=== PATIENT | male | born 1985 | race Caucasian/White ===

== ENCOUNTER 2016-10-06 15:42 | Inpatient (IN) | payer BC ==
[2016-10-06] MEDS ORDERED: LACTATED RINGERS 1,000 ML IVS ONE (16:25)
--- NOTE | 2016-10-06 16:25 | ED.PDOC ---
History of Present Illness - General Chief Complaint: Abdominal Pain Stated Complaint: abd pain Time Seen by Provider: 10/06/16 16:21 Information Source: patient Exam Limitations: no limitations - History of Present Illness Initial Comments: Ryne Quarles 31 y/o male with no chronic medical problem stated that he started sharp stabbing pain yesterday got worse this afternoon able to eat but feels not hungry. No nausea,vomiting ,dysuria or diarrhea or constipation. Abdominal Pain Onset Location: RLQ Pain Radiation: no radiation Quality: steady, stabbing Timing/Duration: 24 hours Improving Factors: nothing Worsening Factors: nothing Associated Symptoms: denies symptoms Review of Systems - Review of Systems Constitutional: States: no symptoms reported EENTM: States: no symptoms reported Respiratory: States: no symptoms reported Cardiology: States: no symptoms reported Gastrointestinal/Abdominal: States: see HPI Genitourinary: States: no symptoms reported Musculoskeletal: States: no symptoms reported Skin: States: no symptoms reported Neurological: States: no symptoms reported Endocrine: States: no symptoms reported Hematologic/Lymphatic: States: no symptoms reported Past Medical History (General) - Patient Medical History Hx Seizures: No Hx Stroke: No Hx Dementia: No Hx Asthma: No Hx of COPD: No Hx Cardiac Disorders: No Hx Congestive Heart Failure: No Hx Pacemaker: No Hx Hypertension: No Hx Thyroid Disease: No Hx Diabetes: No Hx Gastroesophageal Reflux: No Hx Renal Disease: No Hx Cancer: No Hx of HIV: No Hx Hepatitis C: No Hx MRSA: No Surgical History: no surgical history - Vaccination History Hx Tetanus, Diphtheria Vaccination: Yes Hx Influenza Vaccination: Yes Hx Pneumococcal Vaccination: Yes Immunizations Up to Date: Yes - Social History Hx Tobacco Use: Yes Hx Chewing Tobacco Use: No Hx Alcohol Use: No Hx Substance Use: No Hx Substance Use Treatment: No Hx Depression: No Hx Physical Abuse: No Hx Emotional Abuse: No Hx Suspected Abuse: No - Female History Patient : No Family Medical History - Family History Father Family History: No Known Living Status: Unknown Mother Family History: Unknown Physical Exam - Physical Exam General Appearance: Alert, Comfortable, No apparent distress Eyes, Ears, Nose, Throat Exam: PERRL/EOMI, normal ENT inspection, TMs normal, pharynx normal Neck: supple, normal inspection Respiratory: chest non-tender, lungs clear, normal breath sounds Cardiovascular/Chest: normal peripheral pulses, regular rate, rhythm, no edema, no gallop, no murmur Peripheral Pulses: No deficit Gastrointestinal/Abdominal: normal bowel sounds, tenderness - right lower quadrant Back Exam: normal inspection, no CVA tenderness, no vertebral tenderness Neurologic: no motor/sensory deficits, alert, normal mood/affect, oriented x 3 Skin Exam: normal color, warm/dry Lymphatic: no adenopathy Progress - Results/Orders Results/Orders: 10/06/16 17:50 Hold Metformin x 48Hrs [id number] Abdomen/Pelvis w/Contrast [CT] Stat Laboratory Results WBC 9.8 K/mm3 (4.8-10.8) 10/06/16 16:20 RBC 5.24 M/mm3 (4.70-6.10) 10/06/16 16:20 Hgb 16.5 gm/dL (14.0-18.0) 10/06/16 16:20 Hct 46.9 % (42.0-52.0) 10/06/16 16:20 MCV 89.6 fl (80.0-94.0) 10/06/16 16:20 MCH 31.5 pg (27.0-31.0) H 10/06/16 16:20 MCHC 35.2 g/dL (33.0-37.0) 10/06/16 16:20 RDW 12.7 % (11.5-14.5) 10/06/16 16:20 Plt Count 245 K/mm3 (130-400) 10/06/16 16:20 MPV 7.2 fl (7.40-10.4) L 10/06/16 16:20 Absolute Neuts (auto) 7.10 K/uL (1.8-6.8) H 10/06/16 16:20 Absolute Lymphs (auto) 1.90 K/uL (1.0-3.4) 10/06/16 16:20 Absolute Monos (auto) 0.70 K/uL (0.2-0.8) 10/06/16 16:20 Absolute Eos (auto) 0.10 K/uL (0.0-0.4) 10/06/16 16:20 Absolute Basos (auto) 0.10 K/uL (0.0-0.1) 10/06/16 16:20 Neutrophils % 72.8 % (42.0-78.0) 10/06/16 16:20 Lymphocytes % 19.0 % (20.0-50.0) L 10/06/16 16:20 Monocytes % 6.7 % (2.0-9.0) 10/06/16 16:20 Eosinophils % 0.9 % (1.0-5.0) L 10/06/16 16:20 Basophils % 0.6 % (0.0-2.0) 10/06/16 16:20 Sodium 140 mmol/L (135-145) 10/06/16 16:20 Potassium 3.7 mmol/L (3.6-5.0) 10/06/16 16:20 Chloride 104 mmol/L (101-111) 10/06/16 16:20 Carbon Dioxide 30 mmol/L (21-31) 10/06/16 16:20 Anion Gap 9.7 (12-18) L 10/06/16 16:20 BUN 16 mg/dL (7-18) 10/06/16 16:20 Creatinine 0.70 mg/dL (0.6-1.3) 10/06/16 16:20 BUN/Creatinine Ratio 22.9 (10-20) H 10/06/16 16:20 Random Glucose 96 mg/dL (70-105) 10/06/16 16:20 Serum Osmolality 280.4 mOsm/L (275-295) 10/06/16 16:20 Calcium 9.5 mg/dL (8.4-10.2) 10/06/16 16:20 Total Bilirubin 1.2 mg/dL (0.2-1.0) H 10/06/16 16:20 AST 31 IU/L (10-42) 10/06/16 16:20 ALT 65 IU/L (10-60) H 10/06/16 16:20 Alkaline Phosphatase 106 IU/L (42-121) 10/06/16 16:20 Serum Total Protein 8.3 gm/dL (6.4-8.2) H 10/06/16 16:20 Albumin 4.9 g/dl (3.2-5.5) 10/06/16 16:20 Globulin 3.4 gm/dL (2.3-3.5) 10/06/16 16:20 Albumin/Globulin Ratio 1.4 (1.1-1.9) 10/06/16 16:20 Urine Color Yellow (Yellow) 10/06/16 16:15 Urine Appearance Clear (Clear) 10/06/16 16:15 Urine pH 6.5 (4.5-7.8) 10/06/16 16:15 Ur Specific [place] 1.025 (1.005-1.030) 10/06/16 16:15 Urine Protein Negative mg/dL 10/06/16 16:15 Urine Glucose (UA) Negative mg/dL (Negative) 10/06/16 16:15 Urine Ketones Negative mg/dL (NEGATIVE) 10/06/16 16:15 Urine Blood Negative (Negative) 10/06/16 16:15 Urine Nitrite Negative 10/06/16 16:15 Urine Bilirubin Negative (NEGATIVE) 10/06/16 16:15 Urine Urobilinogen 0.2 mg/dL (0.2-1.0) 10/06/16 16:15 Ur Leukocyte Esterase Negative (Negative) 10/06/16 16:15 Urine RBC 0 /hpf 10/06/16 16:15 Urine WBC 0 /hpf 10/06/16 16:15 Ur Epithelial Cells 0 /hpf 10/06/16 16:15 Urine Bacteria 0 10/06/16 16:15 - EKG/XRAY/CT CT Ordered: Yes - abd/pelvis: early appendicitis Departure - Departure Clinical Impression: Abdominal pain Qualifiers: Abdominal location: right lower quadrant Qualified Code(s): R10.31 - Right lower quadrant pain Appendicitis, acute Qualifiers: Acute appendicitis type: unspecified acute appendicitis type Qualified Code(s) : K35.80 - Unspecified acute appendicitis Time of Disposition: 21:09 - D/W Dr. Schneider-surgeon Disposition: Admit Patient Condition: Good Departure Forms: ED Discharge - Pt. Copy, Patient Portal Self Enrollment Instructions: DI for Abdominal Pain-Adult Home Medications: Ambulatory Orders Ciprofloxacin [Cipro] 500 mg PO BID #10 tab 07/25/14 RX: Promethazine HCl 25 mg PO Q8HRS PRN #7 tab 07/25/14 Amoxicillin [Amoxil] 500 mg PO TID #30 cap 01/23/15 Naproxen [Naprosyn] 500 mg PO BID #20 tab 01/23/15 Tramadol HCl [Ultram] 50 mg PO QID PRN #10 tab 01/23/15
--- NOTE | 2016-10-06 19:16 | CT ---
EXAM: Abdomen/Pelvis w/Contrast CLINICAL INDICATION: 31-year-old male with RIGHT lower quadrant pain for two days. EXAMINATION: CT of the abdomen and pelvis was performed following intravenous administration of contrast. Oral contrast was not administered. Multiplanar reformatted images were provided. This exam was performed according to our departmental dose optimization program which includes use of automated exposure control, adjustment of the mA and/or kV according to patient size and/or use of iterative reconstruction technique. COMPARISON: 03/11/2009. FINDINGS: Chest: Evaluation through the lung bases reveals no focal opacity, pleural effusion or pneumothorax. Heart size is within normal limits. No pericardial effusion. Abdomen and pelvis: The liver, gallbladder, pancreas, spleen, bilateral kidneys and bilateral adrenal glands are within normal limits. The vessels are patent and normal in caliber. No abdominopelvic lymph nodes are noted to be pathologically enlarged by CT measurement criteria. The bowel is within normal limits with fecal debris present throughout the large bowel. There is no abnormal bowel wall thickness or bowel dilation. No free air. No free abdominopelvic fluid collections. The appendix is identified retrocecal in location coursing along the RIGHT paracolic gutter slightly enlarged appearance measuring up to 8 mm with adjacent minimal paracolic stranding raising the concern for early, mild appendicitis in the correct clinical setting. The osseous structures are within normal limits. IMPRESSION: 1. The appendix is identified retrocecal in location coursing along the RIGHT paracolic gutter slightly enlarged appearance measuring up to 8 mm with adjacent minimal paracolic stranding raising the concern for early, mild appendicitis in the correct clinical setting. Electronically signed by: Marietta De La Cruz MD 10/06/2016 7:14 PM CDT
[2016-10-06] MEDS ORDERED: MORPHINE SULFATE INJ 10 MG/ML VIAL IV PRN (21:01)
[2016-10-06] MEDS ORDERED: metroNIDAZOLE IV PREMIX 500MG 100 ML IVPB ONE (21:12)
[2016-10-06] MEDS: metroNIDAZOLE IV PREMIX 500MG 500 MG in PREMIX BAG 1 BAG IVPB SCH (21:14)
--- NOTE | 2016-10-06 21:24 | HP ---
CHIEF COMPLAINT: Abdominal pain. HISTORY OF PRESENT ILLNESS: The patient is a 31 year-old male who developed right lower quadrant abdominal pain yesterday. There has been no nausea or vomiting. No fever or chills. No urinary symptoms. No cough. No change in his bowel habits, blood per rectum, melenic stools. PAST MEDICAL HISTORY: Negative for hospitalizations. CURRENT MEDICATIONS: None on a routine basis. He did take some Ibuprofen yesterday. ALLERGIES: NO KNOWN DRUG ALLERGIES. FAMILY HISTORY: Positive for diabetes and vascular disease. SOCIAL HISTORY: The patient is , a father of 3. 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 Does not drink or smoke. REVIEW OF SYSTEMS: Noncontributory, except as in the History of Present Illness. There has been no weight loss. PHYSICAL EXAMINATION: VITAL SIGNS: Currently afebrile and normotensive. GENERAL: The patient is awake, alert, cooperative and in mild distress. HEENT: Reveals the sclera to be nonicteric. Mucous membranes are moist. NECK: Without adenopathy. BACK: Without CVA tenderness. CHEST: Equal breath sounds bilaterally. CARDIOVASCULAR: Regular rate and rhythm. ABDOMEN: Soft. There is tenderness in the right lower quadrant without mass or guarding. EXTREMITIES: Without clubbing, cyanosis or edema. RECTAL: Deferred. LABORATORY: White blood cell count 9.8, hemoglobin 16.5, 72% neutrophils, 245, 000 platelets. Urine is clear. Chemistries are mildly elevated. ALT and bilirubin of 1.2 bilirubin and 65 ALT. Potassium 3.7, creatinine 0.70. CT scan reveals an inflamed retrocecal appendix with no free fluid, no free air and no apparent abscess formation. There is mild pericolic stranding. ASSESSMENT: 1. Early uncomplicated appendicitis. PLAN: The risks and benefits of surgery plus the alternative of antibiotic therapy were discussed with the patient. He has decided to proceed with antibiotic therapy and this will be done. He will be started on Zosyn and Flagyl. He will be given analgesics as needed, hydrated, made NPO and with a blood count in the morning. Further decisions as he improves or does not. #[id number] [facility]
[2016-10-06] MEDS ORDERED: PIPERACILLIN/TAZOBACTAM 3.375 GM VIAL IVPB ONE (22:21)
[2016-10-06] MEDS ORDERED: SODIUM CHL 0.9% 50ML MIN-BAG+ 50 ML IVPB ONE (22:22)
[2016-10-06] MEDS: SODIUM CHLORIDE 0.9% IVPB SCH (22:34)
[2016-10-06] MEDS: PIPERACILLIN IVPB SCH (22:34)
[2016-10-06] MEDS: TAZOBACTAM IVPB SCH (22:34)
[2016-10-06] MEDS: LACTATED RINGERS 1,000 ML IVS PRN (22:37)
[2016-10-07] MEDS ORDERED: PIPERACILLIN/TAZOBACTAM 3.375 GM VIAL IVPB ONE ×5 (03:04→21:45)
[2016-10-07] MEDS ORDERED: metroNIDAZOLE IV PREMIX 500MG 0 ML IVPB ONE (03:04)
[2016-10-07] MEDS ORDERED: SODIUM CHL 0.9% 50ML MIN-BAG+ 50 ML IVPB ONE ×2 (04:14→07:48)
[2016-10-07] MEDS: TAZOBACTAM IVPB SCH (05:05)
[2016-10-07] MEDS: PIPERACILLIN IVPB SCH (05:05)
[2016-10-07] MEDS: SODIUM CHLORIDE 0.9% IVPB SCH (05:05)
[2016-10-07] MEDS: LACTATED RINGERS 1,000 ML IVS PRN ×3 (05:10→22:41)
[2016-10-07] MEDS: metroNIDAZOLE IV PREMIX 500MG 500 MG in PREMIX BAG 1 BAG IVPB SCH ×3 (06:07→21:39)
[2016-10-07] MEDS ORDERED: SODIUM CHLORIDE 0.9% (FLUSH) 10 ML SYG IV PRN (07:33)
[2016-10-07] MEDS ORDERED: metroNIDAZOLE IV PREMIX 500MG 100 ML IVPB ONE ×4 (07:48→21:45)
[2016-10-07] MEDS ORDERED: IV SET AND CAP CHANGE INJ INJ SCH (09:00)
[2016-10-07] MEDS: PIPERACILLIN/TAZOBACTAM 3.375 GM in SODIUM CHLORIDE 0.9% 50ML 50 ML IVPB SCH ×2 (13:22→20:39)
[2016-10-07] MEDS ORDERED: MAGNESIUM HYDROXIDE 30 ML UD PO ONE (16:04)
[2016-10-07] MEDS ORDERED: MAGNESIUM HYDROXIDE 30 ML UD ONE (16:07)
[2016-10-07] MEDS ORDERED: SODIUM CHLORIDE 0.9% 50ML 0 ML ONE (19:13)
[2016-10-07] MEDS ORDERED: IBUPROFEN 400 MG TAB ONE (20:55)
[2016-10-07] MEDS ORDERED: IBUPROFEN 200 MG TAB PO PRN (20:56)
[2016-10-07] MEDS ORDERED: SODIUM CHLORIDE 0.9% 50ML 50 ML ONE ×2 (21:43→21:45)
[2016-10-08] MEDS: PIPERACILLIN/TAZOBACTAM 3.375 GM in SODIUM CHLORIDE 0.9% 50ML 50 ML IVPB SCH (04:50)
[2016-10-08] MEDS: metroNIDAZOLE IV PREMIX 500MG 500 MG in PREMIX BAG 1 BAG IVPB SCH (05:35)
[2016-10-08] MEDS: LACTATED RINGERS 1,000 ML IVS PRN (06:28)
[2016-10-08 09:43] VITALS: BP 112/73; TEMP 97.9; O2SAT 97
--- NOTE | 2016-10-08 11:09 | DS ---
FINAL DIAGNOSIS: 1. Acute uncomplicated retrocecal appendicitis. SURGICAL PROCEDURES: None. HISTORY OF PRESENT ILLNESS: The patient is a 31 year-old male who developed right lower quadrant abdominal pain yesterday. There has been no nausea or vomiting. No fever or chills. No urinary symptoms. No cough. No change in his bowel habits, blood per rectum, melenic stools. LABORATORY: On the date of discharge, the patient's white blood cell count was 7.9, hemoglobin down to 14.4, platelet count 205,000, segmented neutrophils 63.9 %. HOSPITAL COURSE: The patient was admitted through the Emergency Room with a CT scan consistent with appendicitis and lower abdominal pain and right flank pain despite having a normal white count. He was offered appendectomy at that time, however, the patient was quite concerned about anesthesia and surgery. He was told that an alternative was antibiotic therapy, but the rolled seat trimmer results were uncertain at this time. He wished to proceed with this, so he was started on IV Zosyn and Flagyl. By the next morning, his pain had resolved. He remained afebrile, however, his white count had gone up to 12,000, so he was continued on IV antibiotics. He was started on a clear liquid diet, which he tolerated well. He was given a dose of Milk of Magnesia and several bowel movements. He was advanced to a regular diet, which he tolerated the evening of 10/07/16 and the morning of the second post admission day, his white count was normalized. He was afebrile and without pain other than some back and hip pain, which resolved with abducted. At that time, he was discharged home. CONDITION ON DISCHARGE: Improved and excellent. DISPOSITION: The patient is to followup in my office in 2 weeks unless he developed increasing abdominal pain, nausea, vomiting, fever, chills or has other questions or problems. He is also discharged with prescriptions for Flagyl 500 mg q.8h. and Augmentin 875 mg twice a day. He is to take either a probiotic or enhanced yogurt twice a day and knows to call me sooner if he has no problems. There are no restrictions to activity or bathing. #[id number] [facility]
== END 2016-10-08 11:05 | disposition home or self-care (01) | DRG 395 ==
LOC: ER 15:42 → MS 21:30 → OBSVTOIN 21:30
PROVIDERS: ADMIT Surgery; ATTEND Surgery
PROC: BW21YZZ Computerized Tomography (CT Scan) of Abdomen and Pelvis using Other Contrast (ICD-10-PCS; principal; 2016-10-06)
DX: K35.80 Unspecified acute appendicitis (principal); Z53.29 Procedure and treatment not carried out because of patient's decision for other reasons; F17.290 Nicotine dependence, other tobacco product, uncomplicated

== ENCOUNTER 2017-03-16 05:02 | Emergency (ER) | payer BC ==
[2017-03-16] MEDS ORDERED: SODIUM CHLORIDE 0.9% (FLUSH) 10 ML SYG IV PRN (05:14)
[2017-03-16 05:23] VITALS: TEMP 98.4; O2SAT 100
--- NOTE | 2017-03-16 05:45 | ED.PDOC ---
History of Present Illness - General Chief Complaint: Chest Pain/OR Stated Complaint: chest pain Time Seen by Provider: 03/16/17 05:26 Source: patient Exam Limitations: no limitations - History of Present Illness Initial Comments: PT WAS PULLING STACKS OF PALLETS TONIGHT (WORKS AT [employer]) AND HAD RESULTANT PAIN IN HIS CHEST. IT LASTED FOR 15 MIN AND HAS ALL BUT RESOLVED NOW. PAIN IS REPRODUCED WITH PALPATION ON STERNUM AND REPRODUCES/WORSENS WITH DEEP INSPIRATION. PT MENTIONS HE WAS SICK WITH A VIRUS LAST NIGHT. Severity: moderate Improving Factors: rest Worsening Factors: movement Associated Symptoms: denies symptoms Allergies/Adverse Reactions: Allergies NO KNOWN ALLERGY Allergy (Unverified 01/23/15 07:41) Home Medications: Ambulatory Orders Amoxicillin & Pot Clavulanate [Augmentin] 1 tab PO BID #15 tab 10/08/16 metroNIDAZOLE [Flagyl] 500 mg PO Q8HR #22 tab 10/08/16 Review of Systems - Review of Systems Constitutional: Denies: chills, malaise EENTM: States: no symptoms reported Respiratory: Denies: cough, short of breath, wheezing Cardiology: Denies: palpitations, syncope Gastrointestinal/Abdominal: States: no symptoms reported Genitourinary: States: no symptoms reported Musculoskeletal: Denies: back pain, neck pain Skin: States: no symptoms reported Neurological: Denies: numbness, paresthesia, tingling Endocrine: States: no symptoms reported Hematologic/Lymphatic: States: no symptoms reported All other Systems: Reviewed and Negative Past Medical History (General) - Patient Medical History Hx Seizures: No Hx Stroke: No Hx Dementia: No Hx Asthma: No Hx of COPD: No Hx Cardiac Disorders: No Hx Congestive Heart Failure: No Hx Pacemaker: No Hx Hypertension: No Hx Thyroid Disease: No Hx Diabetes: No Hx Gastroesophageal Reflux: No Hx Renal Disease: No Hx Cancer: No Hx of HIV: No Hx Hepatitis C: No Hx MRSA: No Surgical History: no surgical history - Vaccination History Hx Tetanus, Diphtheria Vaccination: Yes Hx Influenza Vaccination: Yes Hx Pneumococcal Vaccination: Yes - Social History Hx Tobacco Use: No Hx Chewing Tobacco Use: No Hx Alcohol Use: No Hx Substance Use: Yes - 13 years ago Hx Substance Use Treatment: No Hx Depression: No Hx Physical Abuse: No Hx Emotional Abuse: No Hx Suspected Abuse: No - Female History Patient : No - Triage Comment ED Triage Comment: Patient was pulling on a pallet and started having shortness of breath and 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 Family Medical History - Family History Father Family History: No Known Living Status: Unknown Mother Family History: Unknown Physical Exam - Physical Exam General Appearance: Alert, Comfortable Eye Exam: bilateral normal Ears, Nose, Throat: hearing grossly normal, normal ENT inspection Neck: full range of motion, supple Respiratory: lungs clear, normal breath sounds, no respiratory distress, no accessory muscle use, other - STERNUM TTP. DEEP BREATH REPRODUCES/WORSENS THE PAIN. 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 CLINICALLY IS CLEARLY MUSCULOSKELETAL CHEST WALL STRAIN / NON- CARDIAC PAIN, BUT I DID EKG FOR COMPLETENESS WHICH WAS NSR. I EXPLAINED THIS TO PT AND HE IS GOING TO TRY OTC MEDS PRIOR TO RX. SAFE FOR DC TO HOME. Departure - Departure Clinical Impression: Pain of anterior chest wall with respiration Disposition: Discharge to Home or Self Care Condition: Good Departure Forms: ED Discharge - Pt. Copy, Patient Portal Self Enrollment Instructions: DI for Costochondritis Diet: resume usual diet Activity: other - NO LIFTING, PUSHING, OR PULLING OVER 15 LBS FOR 1 WEEK. Home Medications: Ambulatory Orders Amoxicillin & Pot Clavulanate [Augmentin] 1 tab PO BID #15 tab 10/08/16 metroNIDAZOLE [Flagyl] 500 mg PO Q8HR #22 tab 10/08/16 Additional Instructions: Please see your regular doctor or return to the ER if the pain doesn't resolve in 1 week, or sooner if the pain worsens.
[2017-03-16 05:51] VITALS: BP 142/80
== END 2017-03-16 05:54 | disposition home or self-care (01) ==
LOC: ER 05:02
DX: R07.1 Chest pain on breathing (principal)

== ENCOUNTER 2018-11-30 11:51 | Emergency (ER) | payer BC ==
[2018-11-30] MEDS ORDERED: KETOROLAC TROMETHAMINE INJ 30 MG/ML VIAL IM ONE (12:13)
--- NOTE | 2018-11-30 12:43 | RAD ---
EXAM DESCRIPTION: Obstructive series, 3 radiographs CLINICAL HISTORY: Right lower quadrant abdomen pain. Back pain FINDINGS/ IMPRESSION: Large intestinal bowel gas without luminal distention. No significant small intestinal bowel gas or evidence of luminal distention No organomegaly or obvious abdominal mass lesion. No pathologic calcification No diagnostic acute bony abnormality Electronically signed by: Landon Hines MD 11/30/2018 12:41 PM CDT
[2018-11-30 14:24] VITALS: O2SAT 98
--- NOTE | 2018-11-30 14:47 | CT ---
EXAM DESCRIPTION: Abdomen/Pelvis w/Contrast CLINICAL HISTORY: rlq and back pain COMPARISON: October 06, 2016 TECHNIQUE: Postcontrast CT images of the abdomen and pelvis are obtained using standard imaging protocol. This exam was performed according to our departmental dose-optimization program, which includes automated exposure control, adjustment of the mA and/or kV according to patient size and/or use of iterative reconstruction technique . FINDINGS: Visualized lung bases show no acute findings. Heterogeneous diffuse fatty infiltration of the liver with areas of geographic fatty sparing are seen. Spleen, pancreas, adrenal glands, and gallbladder are unremarkable. Abdominal vasculature is unremarkable. No nephrolithiasis. No ureteral obstruction. Kidneys are normal. Urinary bladder is within normal limits. Prostate is unremarkable. The appendix is retrocecal and normal. No inflammatory changes of the stomach, small bowel, or colon are seen. No diverticular disease. No pathologic lymphadenopathy. Osseous structures show no aggressive bony lesions. IMPRESSION: No acute findings on CT of the abdomen and pelvis. Mild diffuse fatty infiltration of the liver is seen. Electronically signed by: Tomas Brown MD 11/30/2018 2:45 PM CDT
[2018-11-30] MEDS ORDERED: CIPROFLOXACIN 500 MG TAB PO ONE (15:01)
[2018-11-30] MEDS ORDERED: metroNIDAZOLE 500 MG TAB PO ONE (15:01)
--- NOTE | 2018-11-30 15:02 | ED.PDOC ---
History of Present Illness - General Chief Complaint: Abdominal Pain Stated Complaint: Abdominal pain Time Seen by Provider: 11/30/18 11:54 Source: patient Exam Limitations: no limitations - History of Present Illness Initial Comments: The patient is a 33-year-old male presenting to the emergency room secondary to 3 days of vague lower abdominal to right lower abdominal discomfort in general. Mild decrease in appetite. Mild pain extending down towards the right testicle. Today he started having some lower back pain. No fevers. No diarrhea. No constipation. The patient has had kidney stones in the past and he apparently did have appendicitis in the past that was treated with antibiotics rather than surgery exam shows mild discomfort to palpation of the r ight lower quadrant. No true rebound or peritoneal signs. No costovertebral angle tenderness. No bruising. No evidence of trauma. Timing/Duration: other - 3 days Severity: mild Improving Factors: nothing Worsening Factors: nothing Associated Symptoms: loss of appetite, malaise Allergies/Adverse Reactions: Allergies NO KNOWN ALLERGY Allergy (Unverified 11/30/18 12:14) Home Medications: Ambulatory Orders Ciprofloxacin [Cipro] 500 mg PO BID #14 tab 11/30/18 Metronidazole 500 mg PO TID #21 tab 11/30/18 Tramadol HCl 50 mg PO Q8HR PRN #20 tab 11/30/18 Review of Systems - Review of Systems Constitutional: States: malaise EENTM: States: no symptoms reported Respiratory: States: no symptoms reported Cardiology: States: no symptoms reported Gastrointestinal/Abdominal: States: see HPI Genitourinary: States: see HPI Musculoskeletal: States: see HPI Skin: States: no symptoms reported Neurological: States: no symptoms reported Endocrine: States: no symptoms reported All other Systems: No Change from Baseline Past Medical History (General) - Patient Medical History Hx Seizures: No Hx Stroke: No Hx Dementia: No Hx Asthma: No Hx of COPD: No Hx Cardiac Disorders: No Hx Congestive Heart Failure: No Hx Pacemaker: No Hx Hypertension: No Hx Thyroid Disease: No Hx Diabetes: No Hx Gastroesophageal Reflux: No Hx Renal Disease: - Hx kidney stones Hx Cancer: No Hx of HIV: No Hx Hepatitis C: No Hx MRSA: No Surgical History: no surgical history - Vaccination History Hx Tetanus, Diphtheria Vaccination: Yes Hx Influenza Vaccination: No Hx Pneumococcal Vaccination: No - Social History Hx Tobacco Use: Yes - Quit smoking 2005 Hx Chewing Tobacco Use: No Hx Alcohol Use: No Hx Substance Use: Yes - 13 years ago Hx Substance Use Treatment: No Hx Depression: No Hx Physical Abuse: No Hx Emotional Abuse: No Hx Suspected Abuse: No - Female History Patient : No Family Medical History - Family History Father Family History: No Known Living Status: Unknown Mother Family History: Unknown Hx Family Diabetes: Yes Physical Exam - Physical Exam General Appearance: Alert, Comfortable, No apparent distress Eye Exam: bilateral normal Ears, Nose, Throat: hearing grossly normal, normal ENT inspection, normal phar ynx Neck: full range of motion, supple Respiratory: lungs clear, normal breath sounds, no respiratory distress, no accessory muscle use Cardiovascular/Chest: normal peripheral pulses, regular rate, rhythm, no edema Peripheral Pulses: radial,right: 2+, radial,left: 2+, dorsalis pedis,right: 2+, dorsalis pedis,left: 2+ Gastrointestinal/Abdominal: soft, other - see history of present illness Rectal Exam: deferred Back Exam: normal inspection, no CVA tenderness, no vertebral tenderness Extremity: normal range of motion, non-tender, normal inspection, no pedal edema Neurologic: 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 Workup is not definitive for a source. He is going to be written for tramadol for as needed use for discomfort and he is going to be treated empirically with ciprofloxacin and metronidazole for 7 days in case this is a recurrence of early appendicitis. He needs to keep himself well-hydrated. ER warnings were given for any worsening. Incidentally found on the CT scan was mild fatty liver. He should avoid alcohol intake and try to exercise and lose weight. He does have a very mild elevation of his liver function tests which need to be followed up with his primary care doctor. ER warnings were given. - Results/Orders Results/Orders: 11/30/18 13:30 BLOOD CULTURE Stat 11/30/18 14:02 Hold Metformin x 48Hrs [id number] Laboratory Results - last 24 hr 11/30/18 11/30/18 11/30/18 12:25 13:30 13:30 WBC 8.6 RBC 5.42 Hgb 17.3 Hct 49.8 MCV 92.0 MCH 31.9 H MCHC 34.7 RDW 13.2 Plt Count 312 MPV 7.3 L Absolute Neuts (auto) 5.70 Absolute Lymphs (auto) 2.20 Absolute Monos (auto) 0.70 Absolute Eos (auto) 0.10 Absolute Basos (auto) 0.00 Neutrophils % 65.4 Lymphocytes % 25.5 Monocytes % 7.6 Eosinophils % 1.0 Basophils % 0.5 Sodium 138 Potassium 3.6 Chloride 101 Carbon Dioxide 25 Anion Gap 15.6 BUN 11 Creatinine 0.89 BUN/Creatinine Ratio 12.4 Random Glucose 81 Serum Osmolality 274.1 L Calcium 9.6 Total Bilirubin 1.0 AST 56 H ALT 122 H Alkaline Phosphatase 110 Serum Total Protein 8.6 H Albumin 4.8 Globulin 3.8 H Albumin/Globulin Ratio 1.3 Urine Color Yellow Urine Appearance Clear Urine pH 6.0 Ur Specific [place] 1.010 Urine Protein Negative Urine Glucose (UA) Negative Urine Ketones Negative Urine Blood Trace-intact H Urine Nitrite Negative Urine Bilirubin Negative Urine Urobilinogen 0.2 Ur Leukocyte Esterase Negative Urine RBC 0 Urine WBC 0 Ur Epithelial Cells [address] of abdomen and pelvis shows no evidence of appendicitis or ureteral stone. He does have a mild fatty liver. No other acute pathology. Departure - Departure Clinical Impression: Fatty liver Abdominal pain Qualifiers: Abdominal location: right lower quadrant Qualified Code(s): R10.31 - Right lower quadrant pain Disposition: Discharge to Home or Self Care Condition: Fair Departure Forms: ED Discharge - Pt. Copy, Patient Portal Self Enrollment Diet: regular diet Activity: increase activity as tolerated Referrals: Patrick Small MD [Primary Care Provider] - 1-2 Weeks Prescriptions: Tramadol HCl 50 mg PO Q8HR PRN #20 tab PRN Reason: Moderate Pain Ciprofloxacin [Cipro] 500 mg PO BID #14 tab Metronidazole 500 mg PO TID #21 tab Home Medications: Ambulatory Orders Ciprofloxacin [Cipro] 500 mg PO BID #14 tab 11/30/18 Metronidazole 500 mg PO TID #21 tab 11/30/18 Tramadol HCl 50 mg PO Q8HR PRN #20 tab 11/30/18 Additional Instructions: the patient is a 33-year-old male presenting to the emergency room secondary to vagal right lower abdominal pain and back discomfort. Workup is not definitive for a source. He is going to be written for tramadol for as needed use for discomfort and he is going to be treated empirically with ciprofloxacin and metronidazole for 7 days in case this is a recurrence of early appendicitis. He needs to keep himself well-hydrated. ER warnings were given for any worsening. Incidentally found on the CT scan was mild fatty liver. He should avoid alcohol intake and try to exercise and lose weight. He does have a very mild elevation of his liver function tests which need to be followed up with his primary care doctor. ER warnings were given.
[2018-11-30 15:29] VITALS: TEMP 97.8
[2018-11-30 15:31] VITALS: BP 134/81
== END 2018-11-30 15:29 | disposition home or self-care (01) ==
LOC: ER 11:51
DX: R10.31 Right lower quadrant pain (principal); K76.0 Fatty (change of) liver, not elsewhere classified; Z87.891 Personal history of nicotine dependence; Z87.442 Personal history of urinary calculi
CPT/HCPCS: 36415; 74019; 74177; 80053; 81001; 85025; 87040; J1885

== ENCOUNTER 2020-04-07 17:05 | Emergency (ER) | payer SELFPAY ==
--- NOTE | 2020-04-07 17:20 | ED.PDOC ---
History of Present Illness - General Time Seen by Provider: 04/07/20 17:19 Source: patient - History of Present Illness Initial Comments: 35-year-old male who presents with chief complaint of cough. Onset of illness 2 days ago and gradually worsening. Reports frequent nonproductive cough, worse at night and with activity/exertion. Additionally reports mild dyspnea, chills, mild sore throat, headache, body aches, malaise. Denies chest pain, abd pain, n/v/d, leg swelling. Reports moderate severity illness overall, taking OTC medications with little relief. 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 He wanted to get checked out to see if he was safe to return to work. Allergies/Adverse Reactions: Allergies NO KNOWN ALLERGY Allergy (Unverified 04/07/20 17:51) Home Medications: Ambulatory Orders Azithromycin Tab [Zithromax Tab] 250 mg PO DAILY 4 Days #4 tab 04/07/20 Ibuprofen 800 mg PO BID 04/07/20 Review of Systems - Review of Systems Review of Systems: 04/08/20 02:12 as per HPI All other Systems: Reviewed and Negative Past Medical History (General) - Patient Medical History Hx Seizures: No Hx Stroke: No Hx Dementia: No Hx Asthma: No Hx of COPD: No Hx Cardiac Disorders: No Hx Congestive Heart Failure: No Hx Pacemaker: No Hx Hypertension: No Hx Thyroid Disease: No Hx Diabetes: No Hx Gastroesophageal Reflux: No Hx Renal Disease: - Hx kidney stones Hx Cancer: No Hx of HIV: No Hx Hepatitis C: No Hx MRSA: No - Vaccination History Hx Tetanus, Diphtheria Vaccination: Yes Hx Influenza Vaccination: No Hx Pneumococcal Vaccination: No - Social History Hx Tobacco Use: Yes - Quit smoking 2006 Hx Chewing Tobacco Use: No Hx Alcohol Use: No Hx Substance Use: Yes - 13 years ago Hx Substance Use Treatment: No Hx Depression: No Hx Physical Abuse: No Hx Emotional Abuse: No Hx Suspected Abuse: No - Female History Patient : No Family Medical History - Family History Father Family History: No Known Living Status: Unknown Mother Family History: Unknown Hx Family Diabetes: Yes Physical Exam - Physical Exam General Appearance: Alert, Comfortable, No apparent distress Eye Exam: bilateral normal Ears, Nose, Throat: hearing grossly normal, pharyngeal erythema, other - no tonsillar swelling or exudate noted Neck: non-tender, full range of motion Respiratory: lungs clear, normal breath sounds, no respiratory distress, no accessory muscle use Cardiovascular/Chest: regular rate, rhythm, no edema, no gallop, no JVD, no murmur, tachycardia Peripheral Pulses: radial,right: 2+, radial,left: 2+ Gastrointestinal/Abdominal: non tender, soft, no organomegaly Back Exam: normal inspection Extremity: normal range of motion, non-tender, normal inspection, no pedal edema, no calf tenderness, normal capillary refill Neurologic: vp security II-XII nml as tested, no motor/sensory deficits, alert, normal mood/affect, oriented x 3 Skin Exam: normal color, warm/dry Progress - Progress Progress: 04/07/20 19:00 Cough, dyspnea -concern for COVID-19. Consider also other viral URI's, PNA, flu, strep, dehydration, ACS, other -obtain bloodwork, CXR, EKG, COVID/flu/strep testing -2 L NS bolus 04/07/20 21:00 -Pt had resolved tachycardia with 2 L NS bolus. Feeling much better, vitals stable. -COVID-19 and strep testing positive. Flu negative. Remainder of labs unremarkable. -Discussed diagnoses of COVID-19 and Strep. Will treat Strep with Bicillin 1.2 million units IM in the ED. Will also Rx Azithromycin for double coverage of Strep and COVID-19. Decadron 6 mg IM given for Strep/COVID-19. -Dc to home in good condition, return warnings discussed Cristino Mack MD Billing #[id number] 04/07/20 20:17 UA [URINALYSIS] Stat Laboratory Results - last 24 hr 04/07/20 04/07/20 04/07/20 18:10 18:42 18:42 WBC 4.7 L RBC 5.00 Hgb 16.2 Hct 45.8 MCV 91.7 MCH 32.4 H MCHC 35.3 RDW 13.0 Plt Count 260 MPV 6.8 L Absolute Neuts (auto) 2.60 Absolute Lymphs (auto) 1.40 Absolute Monos (auto) 0.60 Absolute Eos (auto) 0.00 Absolute Basos (auto) 0.10 Neutrophils % 54.9 Lymphocytes % 30.0 Monocytes % 13.0 H Eosinophils % 1.0 Basophils % 1.1 D-Dimer, Quantitative Sodium 136 Potassium 3.9 Chloride 101 Carbon Dioxide 27 Anion Gap 11.9 L BUN 16 Creatinine 1.03 BUN/Creatinine Ratio 15.5 Random Glucose 117 H Serum Osmolality 274.2 L Lactic Acid Calcium 9.1 Total Bilirubin 0.7 AST 55 H ALT 113 H Alkaline Phosphatase 94 Serum Total Protein 7.5 Albumin 4.3 Globulin 3.2 Albumin/Globulin Ratio 1.3 Group A Strep Rapid Positive H 04/07/20 04/07/20 18:42 18:42 WBC RBC Hgb Hct MCV MCH MCHC RDW Plt Count MPV Absolute Neuts (auto) Absolute Lymphs (auto) Absolute Monos (auto) Absolute Eos (auto) Absolute Basos (auto) Neutrophils % Lymphocytes % Monocytes % Eosinophils % Basophils % D-Dimer, Quantitative < 131.0 L Sodium Potassium Chloride Carbon Dioxide Anion Gap BUN Creatinine BUN/Creatinine Ratio Random Glucose Serum Osmolality Lactic Acid 1.2 Calcium Total Bilirubin AST ALT Alkaline Phosphatase Serum Total Protein Albumin Globulin Albumin/Globulin Ratio Group A Strep Rapid - EKG/XRAY/CT EKG: Sinus, Tachy - Heart rate 110, no ST elevations or Q waves noted, axis normal, intervals normal, compared to 03/16/2017 EKG sinus tachycardia is new XRAY: chest - No acute processes per my read Departure - Departure Clinical Impression: COVID-19, Strep pharyngitis Time of Disposition: 20:24 Disposition: Discharge to Home or Self Care Condition: Fair Departure Forms: ED Discharge - Work Release Instructions: Strep Throat (DC), Coronavirus Disease 2019 (COVID-19) Diet: resume usual diet Activity: increase activity as tolerated Referrals: LEXI GONZALEZ IV, ENERGY TRADING ANALYST [Primary Care Provider] - 1-2 Weeks Prescriptions: Azithromycin Tab [Zithromax Tab] 250 mg PO DAILY 4 Days #4 tab Home Medications: Ambulatory Orders Azithromycin Tab [Zithromax Tab] 250 mg PO DAILY 4 Days #4 tab 04/07/20 Ibuprofen 800 mg PO BID 04/07/20 Additional Instructions: As discussed your tested positive for COVID-19 this visit. Take the azithromycin as prescribed and finish the full course. Remain well-hydrated and gradually advance your diet activity level as tolerated. You will need to self quarantine for the next 10 days. Avoid others with a compromised immune system or medical comorbidities. Return to ED if you develop concerning symptoms such as worsening shortness of breath, worsening chest pain, etc.
[2020-04-07] MEDS ORDERED: SODIUM CHLORIDE 0.9% (FLUSH) 10 ML SYG IV PRN (18:22)
[2020-04-07] MEDS ORDERED: SODIUM CHLORIDE 0.9% 1000ML 1,000 ML IVS ONE ×2 (18:23→19:27)
--- NOTE | 2020-04-07 18:34 | RAD ---
EXAM: Chest,1 View CLINICAL INDICATION: Shortness of breath COMPARISON: There is no previous study for comparison. FINDINGS: A single view of the chest was obtained. The heart size is normal. The pulmonary vascularity is unremarkable. The lungs are clear. There is no consolidation, infiltrate, pleural effusion, or pneumothorax. IMPRESSION: Normal chest radiograph. Electronically signed by: Paul Martinez MD 04/07/2020 6:32 PM CDT
[2020-04-07 20:14] VITALS: O2SAT 97
[2020-04-07] MEDS ORDERED: PENICILLIN BENZATHINE 1.2 MU 1.2 MU/2 ML SYG IM ONE (20:23)
[2020-04-07] MEDS ORDERED: DEXAMETHASONE INJ 4 MG/ML VIAL IM ONE (20:23)
[2020-04-07] MEDS ORDERED: AZITHROMYCIN 250 MG TAB PO ONE (20:23)
[2020-04-07 20:56] VITALS: BP 136/94; TEMP 98.3
== END 2020-04-07 20:56 | disposition home or self-care (01) ==
LOC: ER 17:05
DX: U07.1 COVID-19 (principal); J02.0 Streptococcal pharyngitis; Z20.828 Contact with and (suspected) exposure to other viral communicable diseases; Z87.891 Personal history of nicotine dependence; R00.0 Tachycardia, unspecified
CPT/HCPCS: 36415; 71045; 80053; 83605; 85025; 85379; 87502; 87635; 87880; J0561; J1100; J7030; Q0144